=== PATIENT | female | born 1985 ===

== ENCOUNTER 2019-07-22 11:09 | Outpatient (CLI) | payer OTHER | END 2019-07-22 11:10 | disposition home or self-care (01) | LOC: RX STUDY 11:09 | DX: N60.11 Diffuse cystic mastopathy of right breast (principal); N63.10 Unspecified lump in the right breast, unspecified quadrant; N63.20 Unspecified lump in the left breast, unspecified quadrant; N87.0 Mild cervical dysplasia; N39.0 Urinary tract infection, site not specified; N76.2 Acute vulvitis; N97.0 Female infertility associated with anovulation; D25.0 Submucous leiomyoma of uterus ==

== ENCOUNTER → 2022-03-05 | Outpatient (CLI) | payer OTHER | END | disposition home or self-care (01) | LOC: SONOGRAMA 08:06 | PROVIDERS: ATTEND Specialist | DX: N84.0 Polyp of corpus uteri (principal) ==